=== PATIENT | male | born 1945 | race Caucasian/White ===

== ENCOUNTER → 2020-03-23 | Outpatient (CLI) | payer MEDICARE, OTHER | LOC: COL.RAD 12:50 | DX: Z01.818 Encounter for other preprocedural examination (principal); N28.89 Other specified disorders of kidney and ureter; Z90.49 Acquired absence of other specified parts of digestive tract | CPT/HCPCS: Q9967 ==

== ENCOUNTER 2020-04-07 09:45 | Inpatient (IN) | payer MEDICARE, OTHER ==
[~2020-04-07] VITALS: Ht 180.3 cm; Wt 106.7 kg
[2020-04-28] VITALS (10 sets, daily range): BP systolic 116–152; BP diastolic 50–88; PULSE 62–100; TEMP 97.8–98
[2020-04-28] MEDS ORDERED: SYNTHROID 0.10.15 MG PO (05:59)
[2020-04-28] MEDS ORDERED: ALEVE 220MG220 MG PO (06:00)
[2020-04-28] MEDS ORDERED: PRINIVIL40 MG PO (06:01)
[2020-04-28] MEDS ORDERED: METROGEL GEL45 GM TP (06:01)
[2020-04-28] MEDS ORDERED: ASPIRIN E.C. 8181 MG PO (06:02)
[2020-04-28] MEDS ORDERED: LIPITOR 10MG10 MG PO (06:02)
[2020-04-28] MEDS ORDERED: ZYLOPRIM 300MG300 MG PO (06:03)
[2020-04-28] MEDS ORDERED: FLONASEALLERGY NS (06:04)
--- NOTE | 2020-04-28 19:30 | NUR ---
Patient has done well since up from OR. Alert and oriented x 3. Paiz catheter to DD with clear pablo urine. Lap sites x 6 with edges well approximated, has lower right quadrant lap site with gauze and scant drainage. Fluids infusing per order. Spouse at bedside post op. Denies pain throughout the day. SCDs to BLE. Reported off to table games shift manager.
--- NOTE | 2020-04-28 21:00 | NUR ---
Patient is resting in bed. Patient having some pain with movement, but at rest is okay. Patient ruiz output yelow and clear. Insicions dry, clean, and intact.
[2020-04-29] VITALS (7 sets, daily range): BP systolic 118–167; BP diastolic 75–89; PULSE 64–86; TEMP 97.5–98.4
--- NOTE | 2020-04-29 05:02 | NUR ---
Patient having pain and requesting medication. Gave ultram per orders.
--- NOTE | 2020-04-29 08:00 | NUR ---
Patient in bed resting. Alert and oriented x 3. Assessment complete. Lap sites x 6 with edges well approximated. Lower right quadrant site with gauze, scant drainage noted. Patient has Paiz to DD with clear yellow urine in bag. IV fluids continue infusing per orders. Denies further needs at this time.
[2020-04-29 08:10] LABS: HEMATOCRIT 37.6 % (42.0-52.0); HEMOGLOBIN 12.9 g/dl (13.5-18.0)
[2020-04-29 08:24] LABS: CALCIUM 8.8 mg/dL (8.4-10.2); CREATININE, serum 1.37 (0.66-1.25); POTASSIUM 4.4 mmol/L (3.4-5.0)
--- NOTE | 2020-04-29 18:33 | NUR ---
Patient has done well throughout the day. Paiz catheter discontinued per orders this AM per orders. Pericare provided. Patient voiding without difficulties. Patient has been up ambulating in halls throughout the day. Passing gas. Tolerating diet without difficulties. Abdomen appears distended but softer this afternoon. Denies further needs at this time. Will report off to night auditor.
--- NOTE | 2020-04-29 21:00 | NUR ---
PT RESTING IN BED. IS ALERT AND ORIENTED X4. HAS ROBOTIC SITES X6 TO ABDOMEN WITH GAUZE DRSG TO RT LOWER ABD. HAS BEEN UP INDEPENDENTLY IN ROOM VOIDS PER URINAL 300CC OF YELLOW. DENIES NEED FOR PAIN MEDS AT THIS TIME. PASSING GAS WITHOUT PROBLEM.
--- NOTE | 2020-04-30 01:50 | NUR ---
PT AWAKE, TAKES SCHEDULED TYLENOL AT THIS TIME. VOIDING WELL, EMPTIED 600CC OF YELLOW URINE AT THIS TIME.
[2020-04-30 04:00] VITALS: BP 150/75; PULSE 64; TEMP 98.3
--- NOTE | 2020-04-30 06:44 | NUR ---
Medicated with Tramadol 100mg po for abd pain.
[2020-04-30 07:41] VITALS: BP 179/98; PULSE 87; TEMP 97.7
--- NOTE | 2020-04-30 08:15 | NUR ---
Patient sitting up in chair. Alert & oriented. BP elevated. made aware-home lisinopril ordered. Patient tolerated pudding for breakfast, reports not liking cream of wheat. He reports he has not passed flatus today, but abdomen is soft. bowels are quiet. Will monitor.
[2020-04-30 11:49] VITALS: BP 180/87; PULSE 79; TEMP 98.2
[2020-04-30 14:21] VITALS: BP 170/88; PULSE 81; TEMP 98.4
--- NOTE | 2020-04-30 17:27 | NUR ---
PATIENT STATES THAT HE URINATED "IN THE POT". ENCOURAGED TO USE URINAL NEXT TIME FOR MEASUREMENT OF I&O.
[2020-04-30 17:44] VITALS: BP 155/92; PULSE 94; TEMP 98.4
--- NOTE | 2020-04-30 18:09 | NUR ---
Patient resting in bed. he ambulated in halls a few times today. tolerated well, but did have dyspnea with exertion, which he reports is chronic. He was a previous smoker for years. He has minimal appetite, no nausea. He reports passing flatus. Int. reminded him to use urinal for accurate I&O, but he has voiding in tol thoughout day. Main problem today has been elevated BP, notifed thoughtout day & orders obtained as needed . Lastest vitals given to him & no orders at this time. Vss. Will report off to surveyor hydrographic nurse
--- NOTE | 2020-04-30 19:35 | NUR ---
TUMS GIVEN FOR INDIGESTION. WATCHING TV. IS ALERT AND ORIENTED X4. VOIDING PER URINAL, YELLOW URINE.
[2020-04-30 19:50] VITALS: BP 157/81; PULSE 91; TEMP 99.1
[2020-05-01 00:10] VITALS: BP 137/87; PULSE 85; TEMP 98.1
--- NOTE | 2020-05-01 01:30 | NUR ---
Takes scheduled Tylenol at this time.
[2020-05-01 04:30] VITALS: BP 148/84; PULSE 82; TEMP 98.1
[2020-05-01 07:27] VITALS: BP 172/87; PULSE 83; TEMP 98.5
--- NOTE | 2020-05-01 10:00 | NUR ---
Patient is discharging home. Denies pain and nausea. He is passing flatus and had 2 loose stools this morning. Discharge instructions discussed with patient and his . No questions verbalized. INT discontinued. Explained when follow up is. Expalined activity restrictions. All belongings packed up and sent with patient. He asked about a script for tramadol, notified Jesu and he is sending it to [facility]. Patient walked out via wheel chair by Maribel DOUGHERTY.
== END 2020-05-01 10:30 | disposition home or self-care (01) | DRG 657 ==
LOC: INPTSU 04-28 05:19 → SURG 04-28 07:30 → JCC 04-28 12:35
PROVIDERS: ADMIT Urology
PROC: 0TT04ZZ Resection of Right Kidney, Percutaneous Endoscopic Approach (ICD-10-PCS; principal; 2020-04-29)
PROC: 8E0W4CZ Robotic Assisted Procedure of Trunk Region, Percutaneous Endoscopic Approach (ICD-10-PCS; 2020-04-29)
DX: C64.1 Malignant neoplasm of right kidney, except renal pelvis (principal); K56.7 Ileus, unspecified; I10 Essential (primary) hypertension
CPT/HCPCS: A4314; A9284; J0690; J1100; J1170; J1650; J2250; J2405; J2704; J3010; J7030; J7120

== ENCOUNTER 2020-05-12 09:12 | Inpatient (IN) | payer MEDICARE, OTHER ==
[~2020-05-12] VITALS: Ht 177.8 cm; Wt 95.6 kg
[~2020-05-12 09:12] MED LIST: ALEVE 220MG220 MG PO; ASPIRIN E.C. 8181 MG PO; FLONASEALLERGY NS; LIPITOR 10MG10 MG PO; METROGEL GEL45 GM TP; PRINIVIL40 MG PO; SYNTHROID 0.10.15 MG PO; ZYLOPRIM 300MG300 MG PO
[2020-05-12 09:32] LABS: BASO % 0.3 % (0.0-2.0); EOS % 0.4 % (0-4.0); GRAN # 5.8 (1.4-6.5); GRAN % 83.5 % (42.2-75.2); HEMATOCRIT 45.3 % (42.0-52.0); HEMOGLOBIN 15.2 g/dl (13.5-18.0); LYMPH # 0.6 (1.2-3.4); MEAN CELL VOLUME 92 fl (80.0-100.0); MEAN CORPUSCULAR HEMOGLOBIN 31 pg (27.0-31.0); MEAN CORPUSCULAR HGB CONC 34 g/dl (33.0-37.0); MEAN PLATELET VOLUME 9.3 fl (7.4-10.4); MONO # 0.4 (0.1-0.6); MONO % 6.4 % (1.7-9.3); PLATELET COUNT 239 K/mm3 (130-400); RED BLOOD COUNT 4.92 M/mm3 (4.20-5.60); REDCELL DISTRIBUTION WIDTH-CV 13.9 % (11.5-14.5)
[2020-05-12 09:46] LABS: BILIRUBIN,TOTAL 1.7 mg/dL (0.0-1.0); CALCIUM 8.9 mg/dL (8.4-10.2); CREATININE, serum 1.43 (0.66-1.25); POTASSIUM 4.6 mmol/L (3.4-5.0)
[2020-05-12 13:56] VITALS: BP 127/71; PULSE 86; TEMP 98.4
--- NOTE | 2020-05-12 14:05 | NUR ---
Pt up to room 319 by ER nurse, Damaris. Pt A&O, vague answers on room air at this time breathing is tachypneic. RAC IV flushes w/o issue. Pt assisted 1 assist to stand and use urinal.
[2020-05-12] MEDS ORDERED: PLAVIX 75MG TAB75 MG PO (15:29)
--- NOTE | 2020-05-12 15:33 | NUR ---
This nurse called Dr. Miranda office to obtain medical records and med list, awaiting fax. Pt unable to tell us what medications he takes.
[2020-05-12 16:37] VITALS: BP 126/68; PULSE 87; TEMP 98.7
[2020-05-12] MEDS ORDERED: NYAMYC100000 U/G TP (16:51)
[2020-05-12] MEDS ORDERED: PEPCID 20MG TAB20 MG PO (16:54)
--- NOTE | 2020-05-12 18:50 | NUR ---
Pt admission, med rec, allergies, pharmacy, assessment completed. Pt A&O, SBA in room, on room air, breathing is slightly tachpneic, satting mid 90s upon arrival to floor. Pt denies any pain at this time. Pt has RAC IV that flushes w/o issue, abx running. UL LS cta, RLL fine crackles, LLL diminished. Pulses strong bilaterally. Pt had rt nephrectomy about two weeks ago, sites are CDI. Pt does have redness and irritation to rt groin area that he came in with, pt states he has been applying powder to it. Bed alarm on, call light within reach. pt on precautions. No further needs expressed at this time.
[2020-05-12 19:08] VITALS: BP 124/69; PULSE 82; TEMP 99.2
--- NOTE | 2020-05-12 20:02 | NUR ---
Up to restroom and returned to bed. Assessment complete. Lungs clear. Heart sounds normal. Bowels active x4. Pulses present throughout. No edema noted. INT right AC flushed without complications. Denies pain. X7 lap sites to ABD present. CDI. Denies needs at this time. Call light in reach.
[2020-05-13 00:19] VITALS: BP 103/57; PULSE 73; TEMP 97.8
[2020-05-13 04:06] VITALS: BP 100/64; PULSE 76; TEMP 97.8
--- NOTE | 2020-05-13 06:24 | NUR ---
Patient had uneventful night. Resting in bed this AM. Call light in reach.
--- NOTE | 2020-05-13 07:27 | NUR ---
Report given to GLORIA Houser
[2020-05-13 08:00] VITALS: BP 112/69; PULSE 65; TEMP 98.4
[2020-05-13 09:55] LABS: GRAN # 3.4 (1.4-6.5); GRAN % 88.5 % (42.2-75.2); HEMATOCRIT 38.1 % (42.0-52.0); LYMPH # 0.3 (1.2-3.4); LYMPH % 7.6 % (20.0-51.0); MEAN CELL VOLUME 93 fl (80.0-100.0); MEAN CORPUSCULAR HEMOGLOBIN 31 pg (27.0-31.0); MEAN CORPUSCULAR HGB CONC 34 g/dl (33.0-37.0); MEAN PLATELET VOLUME 9.5 fl (7.4-10.4); MONO # 0.1 (0.1-0.6); MONO % 3.1 % (1.7-9.3); PLATELET COUNT 231 K/mm3 (130-400); RED BLOOD COUNT 4.12 M/mm3 (4.20-5.60); REDCELL DISTRIBUTION WIDTH-CV 13.9 % (11.5-14.5)
[2020-05-13 09:56] LABS: INR 1.2 (0.8-3.0); PROTHROMBIN TIME 13.2 SECONDS (9.7-12.8)
[2020-05-13 10:06] LABS: HEMOGLOBIN 12.9 g/dl (13.5-18.0)
[2020-05-13 10:07] LABS: ALBUMIN 3.3 gm/dL (3.5-5.0); BILIRUBIN,TOTAL 0.9 mg/dL (0.0-1.0); C-REACTIVE PROTEIN 7.2 mg/dL (0.0-0.9); CALCIUM 8.7 mg/dL (8.4-10.2); CREATININE, serum 1.38 (0.66-1.25); MAGNESIUM 2.2 mg/dL (1.6-2.3); POTASSIUM 4.6 mmol/L (3.4-5.0); TOTAL PROTEIN 6.8 gm/dL (6.4-8.2)
[2020-05-13 11:36] VITALS: BP 135/73; PULSE 85; TEMP 97.8
--- NOTE | 2020-05-13 12:30 | NUR ---
Pt assessment completed and charted, medications administered per aug. pt A&O, SBA/independent in room. Pt on room air, breathing is even and unlabored, appears better than yesterday. Pt satting well. Pt does have chronic cough. UL LS cta, bases fine crackles. Pt has 7 sites to abdomen from recent rt nephrectomy, sites are CDI, pt denies pain but states he has some discomfort. RAC INT IV flushes w/o issues. Pt has rt groin irritation, will see if desenex is in med bin. Pt is oriented to self and situation but some conversation appears confusing, pt takes awhile to answer questions occasionally. Yesterday pt couldn't tell you about medications, today he states he doesnt take plavix. Pt also couldn't tell you about f/u appts w/ urology, today he stated he had an appt for f/u today. No further needs expressed, pt in bed w/ call light in reach and bed alarm on.
[2020-05-13 17:30] VITALS: BP 123/71; PULSE 83; TEMP 97.9
[2020-05-13 19:35] VITALS: BP 127/78; PULSE 75; TEMP 98.3
--- NOTE | 2020-05-13 21:00 | NUR ---
Resting in bed. Assessment complete. Lungs clear. Heart sounds normal. Bowels active x4. Pulses present throughout. No edema noted. INT right AC without complications. Denies needs. called earlier in shift to speak with patient. Patient connected with . reports phone and glasses were dropped off at ER entrance on Friday. Unable to locate. House supervisior notified.
--- NOTE | 2020-05-13 22:30 | NUR ---
called desk reporting she is not ready for patient to potentially be discharged in AM. Reports she is worried patient will come home and not exercise and "just sit in the recliner and rest with covid." Wants patient to have some sort of placement to a rehab center for physical therapy. Patient reports "I am calling Dr. Dueñas friday morning to have him suggest it to [facility]." Informed patient will pass this information on to next shift and social professionals.
--- NOTE | 2020-05-14 00:08 | NUR ---
Located cell phone and glasses. Patient up to restroom and returned to bed. Denies needs. Call light in reach.
[2020-05-14 00:40] VITALS: BP 130/89; PULSE 70; TEMP 98.8
--- NOTE | 2020-05-14 04:15 | NUR ---
Resting in bed. Denies needs. Call light in reach.
[2020-05-14 04:21] VITALS: BP 145/78; PULSE 87; TEMP 98.4
--- NOTE | 2020-05-14 05:06 | NUR ---
Patient had an uneventful night. Resting in bed this AM. Call light in reach.
--- NOTE | 2020-05-14 07:08 | NUR ---
Report given to GLORIA Houser
[2020-05-14 07:44] VITALS: BP 127/76; PULSE 66; TEMP 97.9
[2020-05-14] MEDS ORDERED: TYLENOL 325MG325 MG PO (09:41)
[2020-05-14] MEDS ORDERED: DECADRON6 MG PO (09:42)
[2020-05-14] MEDS ORDERED: RT Albuterol HFA MDI IH (09:43)
[2020-05-14] MEDS ORDERED: DOXYCYCLINE 10100 MG PO (09:43)
[2020-05-14] MEDS ORDERED: PLAVIX 75MG TAB75 MG PO (09:59)
--- NOTE | 2020-05-14 10:57 | NUR ---
Pt assessment completed, medications administered per mar. Pt A&O, SBA in room, on room air, breathing is even and unlabored, LS cta. Pt denies any pain. 7 abd sites from nephrectomy, CDI. RAC INT IV in place, removed for discharge w/ catheter tip intact, no issues. No further needs. Discharge instructions discussed and reviewed, all questions answered.
[2020-05-14 11:10] LABS: BASO % 0.1 % (0.0-2.0); GRAN # 10.5 (1.4-6.5); GRAN % 95.1 % (42.2-75.2); HEMOGLOBIN 12.8 g/dl (13.5-18.0); LYMPH # 0.3 (1.2-3.4); LYMPH % 2.4 % (20.0-51.0); MEAN CELL VOLUME 91 fl (80.0-100.0); MEAN CORPUSCULAR HEMOGLOBIN 31 pg (27.0-31.0); MEAN CORPUSCULAR HGB CONC 34 g/dl (33.0-37.0); MEAN PLATELET VOLUME 9.5 fl (7.4-10.4); MONO # 0.2 (0.1-0.6); MONO % 1.7 % (1.7-9.3); PLATELET COUNT 262 K/mm3 (130-400); RED BLOOD COUNT 4.16 M/mm3 (4.20-5.60); REDCELL DISTRIBUTION WIDTH-CV 13.6 % (11.5-14.5)
[2020-05-14 11:15] LABS: ALBUMIN 3.3 gm/dL (3.5-5.0); BILIRUBIN,TOTAL 0.7 mg/dL (0.0-1.0); CALCIUM 8.5 mg/dL (8.4-10.2); CREATININE, serum 1.24 (0.66-1.25); MAGNESIUM 2.1 mg/dL (1.6-2.3); TOTAL PROTEIN 6.7 gm/dL (6.4-8.2)
[2020-05-14 11:22] LABS: PRE ALBUMIN 7.9 mg/dL (17.6-36.0)
--- NOTE | 2020-05-14 12:01 | NUR ---
Discharge instructions discussed and reviewed w/ the as well. Pt and verbalized understanding. Instructed to call w/ any further questions. Pt escorted down with FARHAT Lloyd. Pt into wifes car w/o issue.
--- NOTE | 2020-05-15 09:05 | NUR ---
utility worker forge was notified that spouse cannot take care of patient at home and feels the patient requires rehab placement. Worker contacted Sudhakar aids social worker with Dr Mcgee's office and advised of the above information. Sudhakar will help place patient from his home into a rehab. Worker advised that we are not accepting anyone to our Inpatient rehab and [facility] is currently not accepting any referrals at this time.
== END 2020-05-14 12:04 | disposition home or self-care (01) | DRG 177 ==
LOC: COL.ER 09:12 → MEDICAL 12:09
PROVIDERS: Emergency Medicine; ADMIT Internal Medicine
DX: U07.1 COVID-19 (principal); J12.89 Other viral pneumonia; E46 Unspecified protein-calorie malnutrition; E87.1 Hypo-osmolality and hyponatremia; R19.7 Diarrhea, unspecified; E03.9 Hypothyroidism, unspecified; I25.10 Atherosclerotic heart disease of native coronary artery without angina pectoris; I12.9 Hypertensive chronic kidney disease with stage 1 through stage 4 chronic kidney disease, or unspecified chronic kidney disease; N18.30 Chronic kidney disease, stage 3 unspecified; R74.01 Elevation of levels of liver transaminase levels; R77.8 Other specified abnormalities of plasma proteins; Z90.5 Acquired absence of kidney
CPT/HCPCS: 99222-AI; 99232-AI; 99239; J0456; J0696; J1650; J2405; J7030; J7050; J8540; Q9967

== ENCOUNTER 2021-12-07 16:18 | Inpatient (IN) | payer MEDICARE ==
[~2021-12-07] VITALS: Ht 175.3 cm; Wt 113.4 kg
[~2021-12-07 16:18] MED LIST changes: +DECADRON6 MG PO; +DOXYCYCLINE 10100 MG PO; +NYAMYC100000 U/G TP; +PEPCID 20MG TAB20 MG PO; +PLAVIX 75MG TAB75 MG PO; +RT Albuterol HFA MDI IH; +TYLENOL 325MG325 MG PO
[2021-12-07 17:46] VITALS: BP 143/75; PULSE 83; TEMP 97.9
[2021-12-07 17:58] LABS: BASO % 0.3 % (0.0-2.0); EOS # 0.1 K/mm3 (0.0-0.7); EOS % 0.9 % (0.0-4.0); GRAN # 9.6 K/mm3 (1.4-6.5); GRAN % 84.2 % (42.2-75.2); HEMOGLOBIN 12.7 g/dl (13.5-18.0); LYMPH # 0.9 K/mm3 (1.2-3.4); LYMPH % 7.9 % (20.0-51.0); MEAN CELL VOLUME 94 fl (80.0-100.0); MEAN CORPUSCULAR HEMOGLOBIN 33 pg (27-31); MEAN CORPUSCULAR HGB CONC 35 g/dl (33.0-37.0); MEAN PLATELET VOLUME 8.7 fl (7.4-10.4); MONO # 0.7 K/mm3 (0.1-0.6); MONO % 6.2 % (1.7-9.3); PLATELET COUNT 250 K/mm3 (130-400); RED BLOOD COUNT 3.88 M/mm3 (4.20-5.60); REDCELL DISTRIBUTION WIDTH-CV 14.2 % (11.5-14.5)
[2021-12-07 18:03] LABS: HEMATOCRIT 36.3 % (42.0-52.0)
[2021-12-07 18:37] LABS: BILIRUBIN,TOTAL 1.2 mg/dL (0.2-1.2); CALCIUM 9.4 mg/dL (8.4-10.2); CREATININE, serum 1.46 mg/dL (0.72-1.25); POTASSIUM 4.7 mmol/L (3.5-4.5); TOTAL PROTEIN 7.6 gm/dL (6.2-8.1)
[2021-12-07 20:02] VITALS: BP 135/59; PULSE 89; TEMP 98.2
[2021-12-08] VITALS (7 sets, daily range): BP systolic 127–143; BP diastolic 63–88; PULSE 56–105; TEMP 98.3–99.5
--- NOTE | 2021-12-08 01:16 | NUR ---
Pt alert and oriented, resting quietly. Follows commands. IV started in the RFA, ordered antibx administered. Admission assessment and admission intake completed. Med rx reveiwed. Pt's will be bringing in an updated medication list on 12/08/21, med rx will be updated when list is recieved. Allergies confirmed. COVID and infectious disease assessments completed. Pt reports pain in the left wrist/hand. Prn tylenol administered. Left wrist/hand is red, edematous, and warm. Pt has decreased ROM in the left hand. Palms are red bilaterally. Pt is unable to squeeze fingers on the left hand. Right hand chief investment officer strong. VS stable. Pt afebrile. On room air. Continuing to keep left hand elevated. IV antibx administered per protocol. Pt tolerating PO. Denies nausea/vomiting/chest pain. No other significant skin issues aside from the left wrist/hand. Pt does have some skin flaking on the right arm. Pt does not report any questions at this time, will continue to monitor.
--- NOTE | 2021-12-08 04:43 | NUR ---
No adverse events overnight. Pt alert and oriented, resting. Follows commands. Does not report pain at this time. Prn tyleonol administered x1 overnight for pain in the left hand. Left hand remains red/edematous/warm with decreased ROM. VS stable. Afebrile overnight. On room air. Continued with IV antibx overnight. Pt denies nausea/vomiting/diaphoresis/shivering. Pt does not report any questions at this time, will continue to monitor.
[2021-12-08 06:35] LABS: BASO # 0.1 K/mm3 (0.0-0.2); BASO % 0.4 % (0.0-2.0); EOS # 0.1 K/mm3 (0.0-0.7); EOS % 0.8 % (0.0-4.0); GRAN # 11.4 K/mm3 (1.4-6.5); GRAN % 85.8 % (42.2-75.2); LYMPH # 0.9 K/mm3 (1.2-3.4); LYMPH % 6.8 % (20.0-51.0); MEAN CELL VOLUME 95 fl (80.0-100.0); MEAN CORPUSCULAR HEMOGLOBIN 33 pg (27-31); MEAN CORPUSCULAR HGB CONC 34 g/dl (33.0-37.0); MEAN PLATELET VOLUME 8.7 fl (7.4-10.4); MONO # 0.7 K/mm3 (0.1-0.6); MONO % 5.6 % (1.7-9.3); PLATELET COUNT 236 K/mm3 (130-400); RED BLOOD COUNT 3.99 M/mm3 (4.20-5.60); REDCELL DISTRIBUTION WIDTH-CV 14.1 % (11.5-14.5)
[2021-12-08 08:31] LABS: CALCIUM 9.4 mg/dL (8.4-10.2); CREATININE, serum 1.29 mg/dL (0.72-1.25); POTASSIUM 4.8 mmol/L (3.5-4.5)
--- NOTE | 2021-12-08 09:15 | NUR ---
Called with c/o pain to left hand-described as constant throbbing-rating pain 7/10 on pain scale. Oxycodone given per dr henley.
--- NOTE | 2021-12-08 10:00 | NUR ---
Continues to rate pain 7/10 to left hand. Second dose of oxycodone given per dr order. Continues to elevate on pillows and fresh ice applied.
--- NOTE | 2021-12-08 10:49 | NUR ---
SW met with patient to complete intake. Patient states that he lives with his Sulema Sosa [phone]. He utilizes a walker and a cane occassionally, and is independent with ADL's. PCP is Dr. Miranda, and pharmacy is [facility]. Documentation states that spouse is DPOA/HC. Patient plans to return to his home upon DC. SW will continue to follow. DC plan: home
--- NOTE | 2021-12-08 12:36 | NUR ---
Manugrapher prayed and offered support with patient while spouse was in room.
--- NOTE | 2021-12-08 14:16 | NUR ---
Called with c/o pain to right hand-rating pain 7/10 on pain scale-described as constant throbbing. Oxycodone janis per dr henley.
--- NOTE | 2021-12-08 18:17 | NUR ---
Patient had an uneventful day. Received oxycodone for pain x2. VS remained stable. Left hand elevated on pillows and ice applied. Fluid restriction enforced. Denies current needs. Call light in reach. Will monitor.
--- NOTE | 2021-12-08 23:47 | NUR ---
ASSESSMENT COMPLETE. PT. LYING IN BED WATCHING TV. A&O. COMPLAINING OF PAIN IN BILATERAL WRIST AND HANDS 12/16. BRODY WAS GIVEN (SEE EMAR). PT. HAS EDEMA AND REDNESS AROUND THE LEFT HAND AND WRIST. IV FLUIDS INFUSING TO RIGHT FOREARM. CALL LIGHT IN REACH. NO FURTHER NEEDS AT THIS TIME.
--- NOTE | 2021-12-09 00:07 | NUR ---
PT. BACK ON FLOOR FROM [facility].
[2021-12-09 03:49] VITALS: BP 143/81; PULSE 95; TEMP 98.6
[2021-12-09 07:03] LABS: BASO % 0.3 % (0.0-2.0); EOS % 0.2 % (0.0-4.0); GRAN # 10.7 K/mm3 (1.4-6.5); GRAN % 87.6 % (42.2-75.2); HEMOGLOBIN 11.8 g/dl (13.5-18.0); LYMPH # 0.6 K/mm3 (1.2-3.4); LYMPH % 5.2 % (20.0-51.0); MEAN CELL VOLUME 96 fl (80.0-100.0); MEAN CORPUSCULAR HEMOGLOBIN 32 pg (27-31); MEAN CORPUSCULAR HGB CONC 34 g/dl (33.0-37.0); MEAN PLATELET VOLUME 8.9 fl (7.4-10.4); MONO # 0.8 K/mm3 (0.1-0.6); MONO % 6.2 % (1.7-9.3); PLATELET COUNT 210 K/mm3 (130-400); RED BLOOD COUNT 3.67 M/mm3 (4.20-5.60); REDCELL DISTRIBUTION WIDTH-CV 13.9 % (11.5-14.5)
[2021-12-09 07:13] LABS: HEMATOCRIT 35.1 % (42.0-52.0)
[2021-12-09 07:15] LABS: CALCIUM 8.8 mg/dL (8.4-10.2); CREATININE, serum 1.23 mg/dL (0.72-1.25); POTASSIUM 4.7 mmol/L (3.5-4.5)
[2021-12-09 07:23] VITALS: BP 148/69; PULSE 90; TEMP 98.5
--- NOTE | 2021-12-09 08:00 | NUR ---
Assessment complete. A&Ox4. Denies nausea/shortness of breath. VS remain stable. Swelling and redness to left hand is gone but swelling and redness to right hand is now present. Small scabbed area in between 3rd and 4th fingers. Patient states the pain is gone in the left hand but now the right hand is very painful. Provided with pillows to elevate and fresh ice packs. Plan of care discussed for this shift to include meds/calling for questions/concerns. Verbalizes understanding. Call light in reach. Will monitor.
[2021-12-09 11:10] VITALS: BP 137/85; PULSE 97; TEMP 98.7
[2021-12-09 15:47] VITALS: BP 116/70; PULSE 84; TEMP 98
--- NOTE | 2021-12-09 18:19 | NUR ---
Patient had an uneventful day. Received oxycodone x2 for right hand pain. Swelling/redness in left hand is gone but left hand is now swollen/red/warm. IV to right FA flushes well. Denies current needs. Call light in reach. WIll monitor.
[2021-12-09 19:05] VITALS: BP 165/85; PULSE 89; TEMP 97.9
[2021-12-09 23:32] VITALS: BP 121/71; PULSE 85; TEMP 98.4
--- NOTE | 2021-12-10 01:11 | NUR ---
Pt alert and oriented, resting quietly. Follows commands. Calm and cooperative. Pt originally came in for edema/redness/pain in the left hand. It appears the edema/pain/decreased ROM in the left hand has improved, but now there is edema/redness/pain/decreased ROM in the right hand/wrist. Pt reports tenderness with movement and has a decreased coating mixer. Outside Energy Sales Representatives in the left hand has improved. 2+ radial pulses bilaterally. Pt did not request pain medication at this time. Both extremities are elevated on pillows with ice applied. Encouraged pt to keep extremities elevated. IV fluids and IV antibx continuing per orders. Pt tolerating PO. Denies nausea/vomiting/chest pain/dizziness. Shift assessment performed. Medications administered per orders and education provided. VS stable. Pt on room air. No significant skin issues besides the edema/redness on the right hand and slight edema in the left hand. Pt has some skin flakiness noted on the right arm. 1200 fluid restriction enforced and 500 ml free water restriction enforced. Monitoring pt intake. Pt does not report any questions at this time, will continue to monitor.
[2021-12-10 03:17] VITALS: BP 116/78; PULSE 85; TEMP 98.5
[2021-12-10 06:27] LABS: HEMOGLOBIN 10.5 g/dl (13.5-18.0); MEAN CELL VOLUME 96 fl (80.0-100.0); MEAN CORPUSCULAR HEMOGLOBIN 33 pg (27-31); MEAN CORPUSCULAR HGB CONC 34 g/dl (33.0-37.0); MEAN PLATELET VOLUME 8.9 fl (7.4-10.4); PLATELET COUNT 197 K/mm3 (130-400); REDCELL DISTRIBUTION WIDTH-CV 13.7 % (11.5-14.5)
[2021-12-10 06:38] LABS: ALBUMIN 2.2 gm/dL (3.4-4.8); BILIRUBIN,TOTAL 1.2 mg/dL (0.2-1.2); C-REACTIVE PROTEIN 25.74 mg/dL (0.00-0.50); CALCIUM 8.7 mg/dL (8.4-10.2); CREATININE, serum 1.2 mg/dL (0.72-1.25); MAGNESIUM 1.9 mg/dL (1.6-2.6); POTASSIUM 4.6 mmol/L (3.5-4.5); TOTAL PROTEIN 6.2 gm/dL (6.2-8.1)
[2021-12-10 06:47] LABS: HEMATOCRIT 30.8 % (42.0-52.0)
--- NOTE | 2021-12-10 07:00 | NUR ---
Pt doing okay at this time. Right hand is slightly red and is swollen. Left hand appears normal. Pt denies any needs at this time, I did order breakfast for him. Call light within reach, will continue to monitor
[2021-12-10 07:22] VITALS: BP 123/69; PULSE 72; TEMP 98.4
--- NOTE | 2021-12-10 07:41 | NUR ---
No adverse events overnight. Right hand continues to be edematous/red/decrease ROM, while left hand appears to be better. Continuing with IV fluids and IV antibx. Enforced 1200 FR and 500 free water restriction overnight. Pt tolerating PO. Extremities elevated and ice applied. Up to void overnight. VS stable. Afebrile. Pt does not report any questions at this time, will continue to monitor.
[2021-12-10 07:46] LABS: BAND 2 % (0-10); LYMPHOCYTE 3 % (20.0-51.0); NEUTROPHILS 91 % (42.0-75.2)
[2021-12-10 07:47] LABS: ANISOCYTOSIS 1+; PLATELET ESTIMATE NORMAL (NORMAL)
--- NOTE | 2021-12-10 10:30 | NUR ---
Pt very talkative during assessment and medications. Hard to get accurated timeline of when things started occuring. Pt has complaints of over all feeling achy and orginally appeared to be something new, then he would state that it was just part of getting old. Then pt stated that his throat was starting to bother him and asked for a throat spray. He stated that Jalyn gave him something while he was there that helped. Asked how long ago that was and he stated years. Pt also stated that he has not taken Plavix for years, but appears he recently picked up a prescription for it. Pt does have skin that appears to be peeling vs just dry/scaly on his arms which again states has been there for a long time.
--- NOTE | 2021-12-10 11:02 | NUR ---
Vancomycin Follow-up Pharmacy Note Current regimen: VANCOMYCIN 1G Q24H Vancomycin trough: NO TROUGH - LUCIANO RESOLVED Adjustments: VANCOMYCIN 1G Q12H. TROUGH 12/11 @1100
[2021-12-10 11:40] VITALS: BP 125/70; PULSE 75; TEMP 98.5
[2021-12-10 16:00] VITALS: BP 129/80; PULSE 92; TEMP 98.3
--- NOTE | 2021-12-10 17:00 | NUR ---
Pt has done well throughout the day. pts did assist him with bed bath as he stated he did not feel up to getting in to the shower. Continue to keep arms elevated and iced throughout the day. Pt is steady on his feet. Some complaints of pain in his hands, right more so than the left. No needs verbalized, will continue to monitor
[2021-12-10 20:12] VITALS: BP 126/67; PULSE 77; TEMP 98.1
[2021-12-10 20:36] LABS: OSMOLALITY-URINE random 418 Osm/kg (50-1200)
--- NOTE | 2021-12-10 20:50 | NUR ---
Pt. sitting up in bed. Pt. is A&OX3, assessment complete. INT to rt. forearm noted. Reddness and swelling noted to rt. hand. Pt. reports pain at a 2 on pain scale at this time. Pt. denies further needs, call light within reach.
[2021-12-11 00:02] VITALS: BP 111/64; PULSE 80; TEMP 98.1
[2021-12-11 04:26] VITALS: BP 120/61; PULSE 78; TEMP 98.4
[2021-12-11 07:00] VITALS: BP 138/67; PULSE 81; TEMP 98.9
--- NOTE | 2021-12-11 09:06 | NUR ---
PT SITTING UP IN BED. MORNING MEDICATIONS GIVEN. SHIFT ASSESSMENT COMPLETED. PT REPORTS GENERALIZED CHRONIC PAIN. DENIES ANY OTHER NEEDS AT THIS TIME. UPDATE PT ON POC. WILL CONTINUE TO MONITOR.
[2021-12-11] MEDS ORDERED: DOXYCYCLINE HY100 MG PO (10:17)
[2021-12-11] MEDS ORDERED: PREDNISONE20 MG PO (10:17)
--- NOTE | 2021-12-11 10:19 | NUR ---
LUAN attended clinical rounds. The team is ready to discharge the patient today. LUAN followed up with the patient and his , Sulema, to review discharge plan. The patient plans to return home with his . LUAN presented and read the IM form outloud to the patient's . The patient's verbalized understanding and of agreement to discharge today. She signed the form and LUAN provided her with a copy. No additional needs at this time.
--- NOTE | 2021-12-11 11:21 | NUR ---
DISCHARGE INSTRUCTIONS GIVEN, AT BEDSIDE, ALL QUESTIONS ANSWERED. IV D/C. WILL ESCORT PT DOWN WITH PERSONAL BEELONGINGS. WILL D/C FROM SYSTEM.
[2021-12-11 11:29] LABS: HEMOGLOBIN 11.5 g/dl (13.5-18.0); MEAN CELL VOLUME 95 fl (80.0-100.0); MEAN CORPUSCULAR HEMOGLOBIN 33 pg (27-31); MEAN CORPUSCULAR HGB CONC 34 g/dl (33.0-37.0); MEAN PLATELET VOLUME 9.1 fl (7.4-10.4); PLATELET COUNT 264 K/mm3 (130-400); RED BLOOD COUNT 3.54 M/mm3 (4.20-5.60); REDCELL DISTRIBUTION WIDTH-CV 13.9 % (11.5-14.5)
[2021-12-11 11:31] LABS: HEMATOCRIT 33.6 % (42.0-52.0)
[2021-12-11 11:42] LABS: CALCIUM 9.2 mg/dL (8.4-10.2); CREATININE, serum 1.24 mg/dL (0.72-1.25); POTASSIUM 4.3 mmol/L (3.5-4.5)
== END 2021-12-11 11:27 | disposition home or self-care (01) | DRG 603 ==
LOC: MEDICAL 16:18
PROVIDERS: Internal Medicine; Physician Assistant; ADMIT Internal Medicine
DX: L03.114 Cellulitis of left upper limb (principal); E87.1 Hypo-osmolality and hyponatremia; N17.9 Acute kidney failure, unspecified; R42 Dizziness and giddiness; Z66 Do not resuscitate; E78.5 Hyperlipidemia, unspecified; M10.9 Gout, unspecified; D89.89 Other specified disorders involving the immune mechanism, not elsewhere classified; M18.9 Osteoarthritis of first carpometacarpal joint, unspecified; I25.10 Atherosclerotic heart disease of native coronary artery without angina pectoris; I13.10 Hypertensive heart and chronic kidney disease without heart failure, with stage 1 through stage 4 chronic kidney disease, or unspecified chronic kidney disease; N18.30 Chronic kidney disease, stage 3 unspecified; L03.113 Cellulitis of right upper limb; E03.9 Hypothyroidism, unspecified; Z86.73 Personal history of transient ischemic attack (TIA), and cerebral infarction without residual deficits; Z90.5 Acquired absence of kidney; Z90.89 Acquired absence of other organs; Z79.890 Hormone replacement therapy; Z79.82 Long term (current) use of aspirin; Z87.891 Personal history of nicotine dependence; Z72.89 Other problems related to lifestyle; Z89.022 Acquired absence of left finger(s); Z90.49 Acquired absence of other specified parts of digestive tract; Z23 Encounter for immunization
CPT/HCPCS: 99232-AI; J0696; J1644; J3370; J7030; J7040; J7050; J7512

== ENCOUNTER 2022-03-25 09:19 | Inpatient (IN) | payer MEDICARE ==
[~2022-03-25] VITALS: Ht 175.3 cm; Wt 116.7 kg
[2022-03-25] VITALS (538 sets, daily range): BP systolic 95–142; BP diastolic 57–89; PULSE 36–147; TEMP 98.4–99; O2SAT 91–100
[~2022-03-25 09:19] MED LIST changes: +DOXYCYCLINE HY100 MG PO; +PREDNISONE20 MG PO
[2022-03-25 10:10] LABS: BASO # 0.1 K/mm3 (0.0-0.2); BASO % 0.3 % (0.0-2.0); EOS % 0.1 % (0.0-4.0); GRAN # 15.3 K/mm3 (1.4-6.5); HEMATOCRIT 38.1 % (42.0-52.0); HEMOGLOBIN 13.2 g/dl (13.5-18.0); LYMPH # 0.6 K/mm3 (1.2-3.4); LYMPH % 3.8 % (20.0-51.0); MEAN CELL VOLUME 96 fl (80.0-100.0); MEAN CORPUSCULAR HEMOGLOBIN 33 pg (27-31); MEAN CORPUSCULAR HGB CONC 35 g/dl (33.0-37.0); MEAN PLATELET VOLUME 8.5 fl (7.4-10.4); MONO # 0.9 K/mm3 (0.1-0.6); MONO % 5.2 % (1.7-9.3); PLATELET COUNT 278 K/mm3 (130-400); RED BLOOD COUNT 3.98 M/mm3 (4.20-5.60)
[2022-03-25 10:24] LABS: ALBUMIN 2.3 gm/dL (3.4-4.8); BILIRUBIN,TOTAL 1.3 mg/dL (0.2-1.2); CALCIUM 9.3 mg/dL (8.4-10.2); CREATININE, serum 1.5 mg/dL (0.72-1.25); POTASSIUM 4.2 mmol/L (3.5-4.5); TOTAL PROTEIN 7.3 gm/dL (6.2-8.1)
[2022-03-25 10:41] LABS: C-REACTIVE PROTEIN 40.7 mg/dL (0.00-0.50)
--- NOTE | 2022-03-25 14:00 | NUR ---
PATIENT ARRIVED TO ROOM 316. UPON ARRIVAL PATIENT WAS RED IN THE FACE, DIAPHORETIC, AND HR WAS BETWEEN 36-159 WITH B/P OF 95/59. TELE INPLACE AND SHOWING A-FIB. RT AT BEDSIDE OBTAINING ANOTHER EKG. PATIENT REPORTS HE HAS BEEN HAVING SOA X1 MONTH. DENIES CHEST PAIN BUT REPORTS HIS PAIN IS ACTUALLY ALL OVER. ALL OTHER VSS. HOSPITALIST NOTIFIED BEFORE ARRIVAL TO FLOOR OF NEW ONSET A-FIB IN ER AND CALLED CARDIAC CONSULT. NO ORDERS TO TRANSFER TO ICU AT THAT TIME HOWEVER HOSPITALIST NOW AT BEDSIDE ON MEDICAL UNIT AND WANTS PATEINT TRANSFER TO ICU, SEE ORDERS. GAVE AMIO BOLUS INTO RIGHT FORARM VIA PUMP. LEFT HAND IV TO INT. PATIENT IS OBESE WITH A HX OF [place], STROKE AND EX-SMOKER. QUICK HEAD TO TO ASSESSMENT OBTAINED. CARDIOLOGY UPDATED AND ON THEIR WAY TO SEE PATIENT. NO FAMILY AT BEDSIDE AT THIS TIME.
--- NOTE | 2022-03-25 14:27 | NUR ---
AT BEDSIDE. SEE ORDERS.
--- NOTE | 2022-03-25 14:50 | NUR ---
PATIENT TRANSFERING DOWN TO ICU. REPORT GIVEN TO DRY CHAIN OPERATOR. PACO GTT INFUSING VIA PUMP PER ORDERS.
--- NOTE | 2022-03-25 15:05 | NUR ---
Patient alert and oriented upon arrival to the unit. Attached to all monitors and media monitor showing A-fib RVR. Other VS WNL. Denies any chest pain or dizziness. Reports some shortness of air but states that is chronic for the last several months. Cardiology notified of patient's arrival.
[2022-03-25 15:27] LABS: INR 1.4 (0.8-3.0); PROTHROMBIN TIME 15.8 SECONDS (9.7-12.8)
--- NOTE | 2022-03-25 15:31 | NUR ---
Patient cardioverted with 200J with Dr. Rico CRNA and this nurse at bedside. Patient was shocked one time into a SR with frequent PVC's. Patient drowsy but arousable after procedure and VS stable. Will continue to monitor.
[2022-03-25] MEDS ORDERED: VITAMIN D 400400 IU PO (17:26)
[2022-03-25] MEDS ORDERED: TYLENOL 500MG500 MG PO (17:27)
[2022-03-25] MEDS ORDERED: REFRESH OPTIVE10 M2 OP (17:28)
[2022-03-25] MEDS ORDERED: BACITRACIN TOPIC1 TU TOP (17:29)
[2022-03-25] MEDS ORDERED: CYMBALTA 30MG30 MG PO (17:32)
[2022-03-26] VITALS (215 sets, daily range): BP systolic 129–160; BP diastolic 79–112; PULSE 88–104; TEMP 97.6–99; O2SAT 90–100
--- NOTE | 2022-03-26 02:30 | NUR ---
pt transferred to room 308 from ICU, report rec'd prior to arrival, transferred to bed using slide board and assist of 3, pt on RA, heparin gtt @20.5cc/hr per purple port and amiodarone @ 0.5 mg/min per red port of JAMIE PICC line. Alert and oriented x4, NSR on tele. INT to left hand patent/secure.
[2022-03-26 04:37] LABS: BASO # 0.1 K/mm3 (0.0-0.2); BASO % 0.4 % (0.0-2.0); EOS # 0.1 K/mm3 (0.0-0.7); EOS % 0.4 % (0.0-4.0); GRAN # 12.3 K/mm3 (1.4-6.5); GRAN % 88.2 % (42.2-75.2); HEMOGLOBIN 11.5 g/dl (13.5-18.0); LYMPH # 0.7 K/mm3 (1.2-3.4); MEAN CELL VOLUME 97 fl (80.0-100.0); MEAN CORPUSCULAR HEMOGLOBIN 33 pg (27-31); MEAN CORPUSCULAR HGB CONC 34 g/dl (33.0-37.0); MEAN PLATELET VOLUME 8.7 fl (7.4-10.4); MONO # 0.7 K/mm3 (0.1-0.6); MONO % 5.3 % (1.7-9.3); PLATELET COUNT 204 K/mm3 (130-400); RED BLOOD COUNT 3.48 M/mm3 (4.20-5.60); REDCELL DISTRIBUTION WIDTH-CV 14.1 % (11.5-14.5)
[2022-03-26 04:40] LABS: HEMATOCRIT 33.6 % (42.0-52.0)
[2022-03-26 04:52] LABS: ALBUMIN 1.8 gm/dL (3.4-4.8); CALCIUM 8.8 mg/dL (8.4-10.2); CREATININE, serum 1.25 mg/dL (0.72-1.25); MAGNESIUM 1.8 mg/dL (1.6-2.6); PHOSPHOROUS 3.3 mg/dL (2.3-4.7); POTASSIUM 4.5 mmol/L (3.5-4.5)
--- NOTE | 2022-03-26 06:16 | NUR ---
HepXa drawn at 0425 0.48, at goal, heparin infusing @ 20.5 ml/hr, amiodarone @16.7 ml/hr per PICC. c/o discomfort from swelling/sores in mouth, magic mouthwash given with some relief, having alot of difficulty using hands d/t edema/discomfort. needs home meds ordered.
--- NOTE | 2022-03-26 08:00 | NUR ---
Patient is resting in bed with and daughter at the bedside. Alert and oriented x4, slured speech r/t inflamation in his mouth. States it is painful. Getting amiodarone and hep gtt per orders. Telemetry in place NSR. Family states concerns about the inflamation in his mouth. Reported to hospitalist. Assessment completed, no other need at this time. Call light within reach.
--- NOTE | 2022-03-26 10:06 | NUR ---
Initial visit; Patient, his and daughter thanked Microeconomics Professor for looking in on him and offering God's blessings. Patient was receptive to Microeconomics Professor keeping him in her prayers and looking in on him again.
[2022-03-26 10:41] LABS: COLLECTION METHOD CLEAN CATCH
[2022-03-26 11:02] LABS: MUCOUS Present (NOT PRESENT); SQUAMOUS EPITHELIAL 0-2 /hpf (0-10); URINE BACTERIA None Seen /hpf (NONE SEEN); URINE RBC 20-50 /hpf (0-2)
[2022-03-26 11:03] LABS: URINE APPEARANCE Hazy (CLEAR/HAZY); URINE BLOOD 2+ (NEGATIVE); URINE COLOR Yellow (YELLOW); URINE GLUCOSE Negative (NEGATIVE); URINE KETONE Negative (NEGATIVE); URINE NITRATE Negative (NEGATIVE); URINE PROTEIN(semi-quant) 2+ (NEGATIVE); URINE UROBILINOGEN 0.2 E.U/dL (0.2-1.0)
--- NOTE | 2022-03-26 11:21 | NUR ---
Dr. Hager notified regarding needing closer monitoring of patient's airway, and requested patient be sent to a higher level of care. Was instructed to contact Dr. Dexter and voice these concerns. Dr. Dexter contacted and concerns were voiced over patient needing closer monitoring. This RN was informed that Dr. Arizmendi was coming to assess patient and transfer to ICU was pending this assessment.
--- NOTE | 2022-03-26 11:58 | NUR ---
Patient is back from CT scans, RT reports airway still enoght to have good saturations. benadryl and solumedrol were provided before the CT scan. Hep gtt on hold per verval order by Dr. Wright. Cardioilogist was notified (Rachel).
--- NOTE | 2022-03-26 13:41 | NUR ---
Patient was taken to the ICU 5 by PCT Letha and Katie and thIS RN Glenna.
--- NOTE | 2022-03-26 16:45 | NUR ---
PT ADMITED TO ICU5 FROM MEDICAL FLOOR AT 1330. AMIO AND NS INFUSING ORDERED TO PICC IN R UPPER ARM. DRESSING TO PICC IS CDI, BOTH LUMENS FLUSH EASILY AND BLOOD RETURN NOTED. PT ALSO HAS PERIPHERAL TO L HAND, DRESSING CDI. VSS. PT AND DAUGHTER AT BEDSIDE. PT TRANSFERRED TO [facility] VIA EMS IN STABLE CONDITION AT 1600. REPORT CALLED TO GLORIA DUGGAN.
[2022-03-27 08:34] LABS: ANA SCREEN with REFLEX Negative (Negative)
[2022-03-29 18:27] LABS: C-ANCA 11 U/mL (0-99)
== END 2022-03-26 16:00 | disposition short-term general hospital (02) | DRG 871 ==
LOC: COL.ER 09:19 → MEDICAL 12:03 → ICU 14:51 → MEDICAL 03-26 02:02 → ICU 03-26 13:17
PROVIDERS: Family Medicine; Internal Medicine Pulmonary Disease; ADMIT Internal Medicine
PROC: 02HV33Z Insertion of Infusion Device into Superior Vena Cava, Percutaneous Approach (ICD-10-PCS; principal; 2022-03-25)
PROC: 5A2204Z Restoration of Cardiac Rhythm, Single (ICD-10-PCS; 2022-03-25)
DX: A41.9 Sepsis, unspecified organism (principal); J96.01 Acute respiratory failure with hypoxia; R65.21 Severe sepsis with septic shock; E87.1 Hypo-osmolality and hyponatremia; N17.9 Acute kidney failure, unspecified; I48.91 Unspecified atrial fibrillation; Z66 Do not resuscitate; G89.29 Other chronic pain; E03.9 Hypothyroidism, unspecified; I25.10 Atherosclerotic heart disease of native coronary artery without angina pectoris; E78.5 Hyperlipidemia, unspecified; M10.9 Gout, unspecified; Z20.822 Contact with and (suspected) exposure to COVID-19; I95.9 Hypotension, unspecified; I12.9 Hypertensive chronic kidney disease with stage 1 through stage 4 chronic kidney disease, or unspecified chronic kidney disease; N18.30 Chronic kidney disease, stage 3 unspecified; I49.3 Ventricular premature depolarization; G47.33 Obstructive sleep apnea (adult) (pediatric); S00.532A Contusion of oral cavity, initial encounter; Z79.890 Hormone replacement therapy; Z85.528 Personal history of other malignant neoplasm of kidney; Z86.73 Personal history of transient ischemic attack (TIA), and cerebral infarction without residual deficits; Z87.891 Personal history of nicotine dependence; Z79.82 Long term (current) use of aspirin
CPT/HCPCS: C1751; J0282; J0692; J1200; J1644; J2704; J2920; J7030; J7060; J7120; Q9967

== ENCOUNTER 2022-08-08 12:06 | Emergency (ER) | payer MEDICARE ==
[~2022-08-08] VITALS: Ht 175.3 cm; Wt 108.6 kg
[~2022-08-08 12:06] MED LIST changes: +BACITRACIN TOPIC1 TU TOP; +CARDIZEM SR 60M60 MG PO; +CORDARONE200 MG/TAB PO; +CYMBALTA 30MG30 MG PO; +CYMBALTA 60MG60 MG PO; +ELIQUIS 5MG PO; +NORVASC 10MG10 MG PO; +REFRESH OPTIVE10 M2 OP; +SINGULAIR 110 MG/TAB PO; -SYNTHROID 0.10.15 MG PO; +SYNTHROID0.125 MG/T PO; +TYLENOL 500MG500 MG PO; +VITAMIN D 400400 IU PO; +ZYLOPRIM 100MG100 MG PO; +ZYRTEC 10MG10 MG PO
[2022-08-08 12:09] VITALS: TEMP 98.4
[2022-08-08] MEDS ORDERED: NORCO 325 MG-51 TAB PO (14:51)
[2022-08-08 15:42] VITALS: BP 137/80; PULSE 71
[2022-08-08 15:42] LABS: BILIRUBIN,TOTAL 1.3 mg/dL (0.2-1.2); CALCIUM 9.5 mg/dL (8.4-10.2); CREATININE, serum 1.39 mg/dL (0.72-1.25); TOTAL PROTEIN 7.2 gm/dL (6.2-8.1)
== END 2022-08-08 15:46 | disposition home or self-care (01) ==
LOC: COL.ER 12:06
PROVIDERS: Emergency Medicine
DX: M25.552 Pain in left hip (principal)

== ENCOUNTER 2022-08-26 16:33 | Observation (INO) | payer MEDICARE ==
[~2022-08-26] VITALS: Ht 175.3 cm; Wt 107.0 kg
[~2022-08-26 16:33] MED LIST changes: +NORCO 325 MG-51 TAB PO
--- NOTE | 2022-08-26 16:45 | NUR ---
Phone call received from [facility] stating that they were planning on admitting this patient to their [facility] on 08/27 and the family contacted them stating he was headed up to the hospital. Godfrey Sup. notified.
[2022-08-26 19:01] LABS: BASO # 0.1 K/mm3 (0.0-0.2); BASO % 0.4 % (0.0-2.0); EOS # 0.1 K/mm3 (0.0-0.7); EOS % 0.4 % (0.0-4.0); GRAN # 13.5 K/mm3 (1.4-6.5); GRAN % 86.1 % (42.2-75.2); HEMOGLOBIN 12.1 g/dl (13.5-18.0); LYMPH # 0.9 K/mm3 (1.2-3.4); MEAN CELL VOLUME 88 fl (80.0-100.0); MEAN CORPUSCULAR HEMOGLOBIN 30 pg (27-31); MEAN CORPUSCULAR HGB CONC 34 g/dl (33.0-37.0); MEAN PLATELET VOLUME 8.4 fl (7.4-10.4); MONO % 6.4 % (1.7-9.3); PLATELET COUNT 354 K/mm3 (130-400); RED BLOOD COUNT 4.02 M/mm3 (4.20-5.60)
[2022-08-26 19:03] LABS: HEMATOCRIT 35.3 % (42.0-52.0)
[2022-08-26 19:21] LABS: ALBUMIN 2.6 gm/dL (3.4-4.8); BILIRUBIN,TOTAL 1.4 mg/dL (0.2-1.2); C-REACTIVE PROTEIN 27.02 mg/dL (0.00-0.50); CALCIUM 9.8 mg/dL (8.4-10.2); CREATININE, serum 1.62 mg/dL (0.72-1.25); POTASSIUM 4.1 mmol/L (3.5-4.5); TOTAL PROTEIN 7.3 gm/dL (6.2-8.1)
[2022-08-26 21:48] VITALS: BP 118/69; PULSE 70; TEMP 98.8
[2022-08-26] MEDS ORDERED: CARDIZEM CD 12120 MG PO (21:57)
[2022-08-26] MEDS ORDERED: COLCRYS0.6 MG PO (21:58)
[2022-08-26] MEDS ORDERED: COLACE 100100 MG/CAP PO (22:00)
[2022-08-26] MEDS ORDERED: ZYLOPRIM 300MG300 MG PO (22:01)
--- NOTE | 2022-08-26 22:14 | NUR ---
Patient arrived to medical unit from ER at approximately 2140. Patient is alert with confusion. Denies having pain and discomfort. Peripheral INT to right AC. Waiting for house rn to bring Vancomycin. Minimal redness to left foot noted. Skin very dry and flaky. Reports pain to BLE is better after pain medication in ER. Voices no further questions, needs, or concerns at this time. In bed with call light within reach. High fall risk precautions in place. Bed alarm on.
[2022-08-27] VITALS (7 sets, daily range): BP systolic 90–131; BP diastolic 50–67; PULSE 58–77; TEMP 97.5–99.3
--- NOTE | 2022-08-27 00:05 | NUR ---
Patient stated he needed to go to the bathroom. Attempted to use urinal, was not able to. Assisted to bedside commode, only able to void approximately 75 mls after trying for approximately 30 minutes. Bladder scan performed showing 580 mls of urine retention. Call placed to ABHAY Hutchinson. Order received to straight cath. 650 mls of urine output. UA ordered and sent to lab. In bed with call light within reach. Bed alarm on.
[2022-08-27 00:29] LABS: COLLECTION METHOD CLEAN CATCH
[2022-08-27 00:47] LABS: SQUAMOUS EPITHELIAL None Seen /hpf (0-10); URINE APPEARANCE Clear (CLEAR/HAZY); URINE BACTERIA None Seen /hpf (NONE SEEN); URINE BLOOD 1+ (NEGATIVE); URINE COLOR Yellow (YELLOW); URINE GLUCOSE Negative (NEGATIVE); URINE KETONE Negative (NEGATIVE); URINE NITRATE Negative (NEGATIVE); URINE PROTEIN(semi-quant) 1+ (NEGATIVE); URINE UROBILINOGEN 0.2 E.U/dL (0.2-1.0)
--- NOTE | 2022-08-27 02:39 | NUR ---
Vancomycin Initial Dosing Pharmacy Note Ordering provider: Nithya Torres MD Indication/duration: LE cellulitis x 5 days Relevant comorbidities: Right nephrectomy, HTN, CKD LABS: WBC = 15.7, SCr = 1.62 Recommendation: Will draw troughs and follow levels. Loading dose: 2 grams Maintenance dose: 1.25 grams every 24 hours Trough goal: 10-15 ug/mL
--- NOTE | 2022-08-27 05:28 | NUR ---
Patient reports not feeling like he has to void yet, but did try without being able to urinate. Bladder scan showed 250 mls of urine. Continues on IV fluids and ABX per orders. Voices no questions, needs, or concerns at this time. In bed with call light within reach. Bed alarm on.
[2022-08-27 06:58] LABS: HEMOGLOBIN 10.5 g/dl (13.5-18.0); MEAN CELL VOLUME 89 fl (80.0-100.0); MEAN CORPUSCULAR HEMOGLOBIN 30 pg (27-31); MEAN CORPUSCULAR HGB CONC 34 g/dl (33.0-37.0); MEAN PLATELET VOLUME 8.5 fl (7.4-10.4); PLATELET COUNT 333 K/mm3 (130-400); RED BLOOD COUNT 3.49 M/mm3 (4.20-5.60); REDCELL DISTRIBUTION WIDTH-CV 13.1 % (11.5-14.5)
[2022-08-27 07:02] LABS: HEMATOCRIT 31.2 % (42.0-52.0)
[2022-08-27 07:09] LABS: CALCIUM 8.8 mg/dL (8.4-10.2); CREATININE, serum 1.55 mg/dL (0.72-1.25); MAGNESIUM 1.6 mg/dL (1.6-2.6); POTASSIUM 3.6 mmol/L (3.5-4.5)
[2022-08-27 07:57] LABS: BAND 1 % (0-10); LYMPHOCYTE 5 % (20.0-51.0); NEUTROPHILS 89 % (42.0-75.2); PLATELET ESTIMATE NORMAL (NORMAL)
--- NOTE | 2022-08-27 09:54 | NUR ---
Follow-up visit; Patient and his thanked It Generalist for offering prayer and God's blessings. It Generalist will follow-up.
--- NOTE | 2022-08-27 10:56 | NUR ---
Accountancy Professor met with [employer] and his wief at bedside to conduct CAre Managment Assessment and discuss discharge planning. Patient lives in [place], [place] with his and was scheduled to admit to [facility] on this day prior to admitting to the ER. Patient is established with PCP Dr. Miranda and recieves medications from [facility]. Patient denies the use of O2 prior to admission and utilizes a walker at home. Patient has AD on file. Patient is to discharge direct to [facility]. Discharge Plan: [facility]
--- NOTE | 2022-08-27 12:59 | NUR ---
PER FOUNDRY TENDER REPORT, PATIENT HAS BEEN RETAINING URINE. NEEED STRAIGHT CATH BC BLADDER SCAN SHOWED >600. AT 0700 PATIENT HAD ONLY 250ML. PATIENT ATTEMPTED TO VOID AND HAVE BOWEL MOVEMENT. GOT SOME URINE OUT. BLADDER SCAN AT 1230 WAS 229ML. WILL RECHECK.
--- NOTE | 2022-08-27 18:34 | NUR ---
BLADDER SCANNED PATIENT AT 1800. 439ML RETAINING. IC'D PATIENT AND GOT 500ML OUT.
--- NOTE | 2022-08-27 22:47 | NUR ---
Patient assessed around 1999. Denies having pain and discomfort. Patient did urinate around 2200, 200 mls. Voices no questions, needs, or concerns at this time. In bed with call light within reach. High fall risk precautions in place. Bed alarm on.
[2022-08-28 03:38] VITALS: BP 114/87; PULSE 77; TEMP 98.7
--- NOTE | 2022-08-28 05:45 | NUR ---
Patient has been able to void this shift. Voices no questions, needs, or concerns at this time. In bed with call light within reach. High fall risk precautions in place.
[2022-08-28 07:53] VITALS: BP 135/72; BP 143/71; PULSE 78; PULSE 88; TEMP 97.6; TEMP 98.4
[2022-08-28 08:13] LABS: BASO # 0.1 K/mm3 (0.0-0.2); BASO % 0.5 % (0.0-2.0); EOS # 0.1 K/mm3 (0.0-0.7); EOS % 1.1 % (0.0-4.0); GRAN # 9.4 K/mm3 (1.4-6.5); GRAN % 84.9 % (42.2-75.2); HEMOGLOBIN 10.6 g/dl (13.5-18.0); LYMPH # 0.7 K/mm3 (1.2-3.4); MEAN CELL VOLUME 87 fl (80.0-100.0); MEAN CORPUSCULAR HEMOGLOBIN 30 pg (27-31); MEAN CORPUSCULAR HGB CONC 34 g/dl (33.0-37.0); MEAN PLATELET VOLUME 8.2 fl (7.4-10.4); MONO # 0.8 K/mm3 (0.1-0.6); MONO % 6.8 % (1.7-9.3); PLATELET COUNT 312 K/mm3 (130-400); RED BLOOD COUNT 3.56 M/mm3 (4.20-5.60)
[2022-08-28 08:14] LABS: HEMATOCRIT 30.8 % (42.0-52.0)
[2022-08-28] MEDS ORDERED: PREDNISONE20 MG PO (08:25)
[2022-08-28] MEDS ORDERED: VITAMIN D 50,1.25 MG PO (08:28)
[2022-08-28 08:31] LABS: CALCIUM 8.8 mg/dL (8.4-10.2); CREATININE, serum 1.29 mg/dL (0.72-1.25); POTASSIUM 3.4 mmol/L (3.5-4.5)
== END 2022-08-28 12:35 | disposition home or self-care (01) ==
LOC: COL.ER 16:33 → MEDICAL 19:39
PROVIDERS: Nurse Practitioner; Physician Assistant; Student in an Organized Health Care Education/Training Program; ADMIT Student in an Organized Health Care Education/Training Program
DX: M79.662 Pain in left lower leg (principal); M79.661 Pain in right lower leg; R22.43 Localized swelling, mass and lump, lower limb, bilateral; R53.1 Weakness; I48.91 Unspecified atrial fibrillation; E87.1 Hypo-osmolality and hyponatremia; E87.6 Hypokalemia; I12.9 Hypertensive chronic kidney disease with stage 1 through stage 4 chronic kidney disease, or unspecified chronic kidney disease; N18.30 Chronic kidney disease, stage 3 unspecified; N17.9 Acute kidney failure, unspecified; E78.5 Hyperlipidemia, unspecified; E03.9 Hypothyroidism, unspecified; M10.9 Gout, unspecified; K21.9 Gastro-esophageal reflux disease without esophagitis; I63.9 Cerebral infarction, unspecified; I25.10 Atherosclerotic heart disease of native coronary artery without angina pectoris; R41.81 Age-related cognitive decline; Z79.899 Other long term (current) drug therapy; Z90.5 Acquired absence of kidney; Z90.89 Acquired absence of other organs; Z79.01 Long term (current) use of anticoagulants; Z79.890 Hormone replacement therapy; Z87.891 Personal history of nicotine dependence
CPT/HCPCS: G0378; J2543; J3370; J7030; J7040; J7512